=== PATIENT | female | born 1965 | race Caucasian/White ===

== ENCOUNTER 2020-10-15 12:33 | Emergency (ER) | payer BC, SELFPAY ==
[2020-10-15 12:41] VITALS: BP 151/85; PULSE 82; RESP 15; TEMP 36.5; O2SAT 100; BMI 34.2
[2020-10-15 12:57] VITALS: BP 173/87; PULSE 96; RESP 18; O2SAT 100
--- NOTE | 2020-10-15 13:07 | W.ED.EXTPRO ---
HPI - Extremity Problem General: Chief complaint: Extremity Injury, Upper Stated complaint: injury to right arm Time Seen by Provider: 10/15/20 12:46 Source: patient Mode of arrival: ambulatory Limitations: no limitations History of Present Illness: HPI Narrative: Patient is a nice 55-year-old female who presents to ED today for evaluation of her right upper extremity injury. 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 She sustained several puncture wounds to the posterior aspect of her right upper arm. She initially went to urgent care for evaluation but was promptly sent to the emergency department. Bleeding is controlled upon arrival. She has no other injuries at this time. Tetanus is up-to-date. MD Complaint: extremity pain and extremity swelling Onset (ago): hour(s) Pain Consistency: constant Location: right and upper extremity Radiation: none Relieving factors: immobilization Exacerbating factors: range of motion Associated symptoms: Reports no associated symptoms; Deny chest pain Review of Systems Eyes: Denies: change in vision Card: Denies: chest pain Resp: Denies: dyspnea GI: Denies: nausea or vomiting Musc: Reports: extremity pain, extremity swelling and joint swelling (around R elbow); Denies: neck pain, back pain or joint redness Skin/Breast: Reports: other (puncture wounds to R UE) Neuro: Denies: headache(s), numbness in extremities, weakness in extremities or sensory changes Physical Exam Const: COMMON NORMALS: patient oriented x3, healthy appearing, alert and well nourished GENERAL APPEARANCE: cooperative and in distress (in pain-refuses pain meds) Resp: COMMON NORMALS: normal respiratory effort Cardio: COMMON NORMALS: regular rate and regular rhythm RATE: regular rate RHYTHM: regular rhythm Extremity: NARRATIVE EXTREMITY EXAM: pt has two puncture ochoa to posterior R upper arm (largest one measuring 3cm with subcutaneous adipose tissue hanging out); she has a substantial amount of soft tissue swelling/hematoma present; bleeding from the lacerations is controlled; sensory of extremity appears intact; radial pulse 2+ Neuro: COMMON NORMALS: patient oriented x3, moves all extremities, no focal motor deficits and no sensory deficits noted SENSORIUM/ORIENTATION: Yes alert Skin: NARRATIVE SKIN EXAM: see extremity assessment-otherwise normal exam Procedures Laceration Laceration 1: Site: upper extremity Side (If applicable): right Size (cm): 1.0 Description: linear Depth: simple, single layer Local Anesthetic: lidocaine 1% and with epi Amount of anesthesia used (mL): 1.0 Pre-repair: wound explored and irrigated extensively Skin layer closed with: nylon Size (cm): 4-0 Number of sutures: 2 Technique: running Laceration 2: Site: upper extremity Side (If applicable): right Size (cm): 3.0 Description: linear Depth: simple, single layer Local Anesthetic: lidocaine 1% and with epi Amount of anesthesia used (mL): 3.0 Pre-repair: wound explored (subq fat exposed and was irrigated and placed back inside defect ) and irrigated extensively Skin layer closed with: nylon Size (cm): 4-0 Number of sutures: 5 Technique: running Course Vital Signs: Vital signs: Vital Signs Temperature 97.7 F 10/15/20 12:41 Pulse Rate 96 10/15/20 12:57 Respiratory Rate 18 10/15/20 12:57 Blood Pressure 173/87 10/15/20 12:57 Pulse Oximetry 100 10/15/20 12:57 MDM - Extremity (Nontraumatic) MDM Narrative: Medical decision making narrative: XR does not show any bony injury. CTA of her upper extremity shows no extravasation of the vessels. Radial pulse is equal bilaterally. Cap refill is brisk. Sensory intact. Wounds were repaired as documented. Will cover with antibiotics. Strict return to ED precautions given. Lab Data: Labs: Lab Results 10/15/20 10/15/20 Range/Units 14:00 14:00 WBC 17.4 H (4.0-10.0) 10^3/ uL RBC 4.66 (4.1-5.3) 10^6/u L Hgb 13.9 (11.5-15.3) g/dL Hct 42.9 (37.0-47.0) % MCV 92.1 (81-99) fL MCH 29.8 (28.0-34.0) pg MCHC 32.4 (30.0-36.0) g/dL RDW 13.2 (12.1-15.1) % Plt Count 260 (130-400) 10^3/c mm MPV 10.7 H (7.4-10.4) fL Neut % (Auto) 87.2 % Lymph % (Auto) 5.3 % Dundy % (Auto) 6.6 % Eos % (Auto) 0.1 % Baso % (Auto) 0.5 % Neut # (Auto) 15.22 H (1.8-7.7) 10^3/u L Lymph # (Auto) 0.9 (0.8-4.8) 10^3/u L Dundy # (Auto) 1.2 H (0.2-0.9) 10^3/u L Eos # (Auto) 0.0 (0.0-0.8) 10^3/u L Baso # (Auto) 0.1 (0.0-0.1) 10^3/u L Nucleated RBC % (a uto) 0 % Nucleated RBCs # 0.0 /100WBC Sodium 141 (136-145) mmol/L Potassium 3.6 (3.5-5.1) mmol/L Chloride 106 (98-107) mmol/L Carbon Dioxide 22 (22-29) mmol/L Anion Gap 16.6 (5-19) BUN 14 (6-20) mg/dL Creatinine 0.6 (0.5-0.9) mg/dL GFR Calculation 103.4 (90-130) mL/min Glucose 125 H (65-115) mg/dL Calculated Osmolal ity 294 (285-295) mOsm/k g Calcium 9.3 (8.5-10.5) mg/dL Total Bilirubin 0.3 (0.15-1.2) mg/dL AST 16 (0-32) U/L ALT 14 (0-33) U/L Alkaline Phosphata se 88 (35-105) IU/L Total Protein 7.4 (6.6-8.7) g/dL Albumin 4.4 (3.5-5.2) g/dL Globulin 3.0 (1.3-4.6) g/dL Imaging Data^: XR R humerus: Radiologist's impression: [facility] [address] [place] [address] XRay Report Signed Patient: Rosa Joyner Unit #: [id number] : 1965 Age/Sex: 55 / F ADM Date: 10/15/20 Loc: ER Room/Bed: Attending Dr: Ordering Provider/Ordering MD: Chata Wu Date of Service: 10/15/20 Procedure(s): [place] [address] Accession Number(s): [id number] Report Number: [id number] PROCEDURE INFORMATION: Exam: XR Right Humerus Exam date and time: 10/15/2020 1:10 PM Age: 55 years old Clinical indication: Injury or trauma; Other: Arm pinned between cow and cattle chute; Blunt trauma (contusions or hematomas); Arm, upper and elbow; Right; Injury date: 10/15/20 TECHNIQUE: Imaging protocol: XR Right humerus. Views: 2 or more views. COMPARISON: No relevant prior studies available. FINDINGS: Bones/joints: Negative for acute bone abnormality. Soft tissues: There is a soft tissue laceration in the medial aspect of the proximal arm measuring 16 mm x 109 mm. Soft tissue effusion is seen around this area. XR/[place] [id number] IMPRESSION: 1. No acute bone abnormality. 2. Soft tissue laceration and edema medial arm. Dictated By: Antwan Lau Signed By: Antwan Lau Signed Date/Time: 10/15/20 1357 DD/ 1354 XR R elbow: Radiologist's impression: [address] [address] XRay Report Signed Patient: Rosa Joyner Unit #: [id number] : 1965 Age/Sex: 55 / F ADM Date: 10/15/20 Loc: ER Room/Bed: Attending Dr: Ordering Provider/Ordering MD: Chata Wu Date of Service: 10/15/20 Procedure(s): XR elbow RT min 3V* 15041 Accession Number(s): [id number] Report Number: [id number] PROCEDURE INFORMATION: Exam: XR Right Elbow Exam date and time: 10/15/2020 1:10 PM Age: 55 years old Clinical indication: Injury or trauma; Other: Arm pinned between cow and cattle chute; Blunt trauma (contusions or hematomas); Arm, upper and elbow; Right; Injury date: 10/15/20 TECHNIQUE: Imaging protocol: XR Right elbow. Views: 3 or more views. COMPARISON: No relevant prior studies available. FINDINGS: Bones/joints: Negative for acute bony abnormality. Soft tissues: There is possible soft tissue injury in the region of the olecranon . This finding is seen on the lateral view only. XR/XR elbow RT min 3V* [id number] IMPRESSION: 1. Negative for acute bony abnormality. 2. Possible soft tissue injury near the olecranon Dictated By: Antwan Lau Signed By: Antwan Lau Signed Date/Time: 10/15/20 1355 DD/ 1352 CTA R UE: Radiologist's impression: [address] [address] [address] Scan Report Signed Patient: Rosa Joyner Unit #: [id number] : 1965 Age/Sex: 55 / F ADM Date: 10/15/20 Loc: ER Room/Bed: Attending Dr: Ordering Provider/Ordering MD: Chata Wu Date of Service: 10/15/20 Procedure(s): [place] [address] Accession Number(s): [id number] Report Number: [id number] WS: [id number] CT angiogram RIGHT upper extremity. HISTORY: Smash injury between 2 gauge. Soft tissue bleeding and hematoma. CT angiogram is performed with Omnipaque 350, 190 cc. Adequate contrast enhancement of the RIGHT upper extremity vessels. No active extravasation is noted from the arteries or veins of the humerus. Very small caliber arteries are probably due to vasoconstriction. There is significant soft tissue injury around the distal humerus and elbow. The soft tissue injury in the area closely associated with the veins and arteries at the elbow. There is no large hematoma. There is stranding of soft tissues from the edema and soft tissue injury. No fracture identified. CT/[place] [address] IMPRESSION: 1. No active extravasation from the arteries or veins of the RIGHT upper extremity. 2. There is extensive soft tissue injury which extends to abut the basilic and brachial arteries and veins in the distal humerus and at the elbow. 3. Vasoconstriction of the basilic and brachial arteries and humerus. Dictated By: Thais Nelson DO Signed By: Thais Nelson DO Signed Date/Time: 10/15/20 1458 DD/ 1448 Discharge Plan Discharge Patient Disposition: Home Clinical Impression: Puncture wound of right upper arm Qualifiers: Encounter type: initial encounter Qualified Code(s): S41.131A - Puncture wound without foreign body of right upper arm, initial encounter Condition: Stable Prescriptions: New cephalexin 500 mg capsule 500 mg PO Q6H 7 Days Qty: 28 RF: 0 Discharge Orders: Discharge ED (Routine); Ordered 10/15/20 Ordered By: Chata Wu Referrals: Leonard Schuster MD [Primary Care Provider] - Patient Instructions: Puncture Wound (ED), RICE Therapy (ED) Activity Restrictions/Additional Instructions: As we discussed you need to ice and elevate the extremity as much as possible to help with swelling. You need to return to the emergency department for any numbness/tingling/loss of sensation to the extremity, pallor/paleness, or coolness to the extremity. Sutures need to be removed in 10 days. Keep these clean with warm soap and water. Fill your antibiotics immediately. Monitor for signs of infection such as redness, swelling, increased pain or drainage. 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
--- NOTE | 2020-10-15 13:28 | CT_ITS ---
WS: [id number] CT angiogram RIGHT upper extremity. HISTORY: Smash injury between 2 gauge. Soft tissue bleeding and hematoma. CT angiogram is performed with Omnipaque 350, 190 cc. Adequate contrast enhancement of the RIGHT upper extremity vessels. No active extravasation is noted from the arteries or veins of the humerus. Very small caliber arteri es are probably due to vasoconstriction. There is significant soft tissue injury around the distal hu merus and elbow. The soft tissue injury in the area closely associated with the veins and arteries at the elbow. There is no large hematoma. There is stranding of soft tissues from the edema and soft ti ssue injury. No fracture identified. [place] [id number] IMPRESSION: 1. No active extravasation from the arteries or veins of the RIGHT upper extre mity. 2. There is extensive soft tissue injury which extends to abut the basilic and brachial arteries and veins in the distal humerus and at the elbow. 3. Vasoconstriction of the basilic and brachial arteries and humerus.
[2020-10-15 14:06] LABS: Basophils # 0.1 10^3/uL (0.0-0.1); Basophils % 0.5 %; Eosinophils % 0.1 %; Hematocrit 42.9 % (37.0-47.0); Hemoglobin 13.9 g/dL (11.5-15.3); Lymphocytes # 0.9 10^3/uL (0.8-4.8); Lymphocytes % 5.3 %; Mean Corpuscular HGB Conc 32.4 g/dL (30.0-36.0); Mean Corpuscular Hemoglobin 29.8 pg (28.0-34.0); Mean Corpuscular Volume 92.1 fL (81-99); Mean Platelet Volume 10.7 fL (7.4-10.4); Monocytes # 1.2 10^3/uL (0.2-0.9); Monocytes % 6.6 %; Neutrophils # 15.22 10^3/uL (1.8-7.7); Neutrophils % 87.2 %; Nucleated Red Blood Cells % 0 %; Platelet Count 260 10^3/cmm (130-400); Red Blood Count 4.66 10^6/uL (4.1-5.3); Red Cell Distribution Width 13.2 % (12.1-15.1); White Blood Count 17.4 10^3/uL (4.0-10.0)
[2020-10-15] MEDS: iohexol 350 mg/mL 100 mL Btl IV (14:20)
[2020-10-15] MEDS: iodixanol 320 mg/mL 100mL Btl IV (14:24)
[2020-10-15 14:29] LABS: Alanine Aminotransferase 14 U/L (0-33); Albumin Level 4.4 g/dL (3.5-5.2); Alkaline Phosphatase 88 IU/L (35-105); Anion Gap 16.6 (5-19); Aspartate Amino Transferase 16 U/L (0-32); Blood Urea Nitrogen 14 mg/dL (6-20); Calcium 9.3 mg/dL (8.5-10.5); Carbon Dioxide 22 mmol/L (22-29); Chloride 106 mmol/L (98-107); Creatinine Clr Calc Pharmacy 130.8392; Glomerular Filtration Rate 103.4 mL/min (90-130); Glucose 125 mg/dL (65-115); Osmolality Calculated 294 mOsm/kg (285-295); Potassium 3.6 mmol/L (3.5-5.1); Sodium 141 mmol/L (136-145); Total Bilirubin 0.3 mg/dL (0.15-1.2); Total Protein 7.4 g/dL (6.6-8.7)
== END 2020-10-15 16:08 | disposition home or self-care (01) ==
PROVIDERS: Emergency Provider Physician Assistant; PCP Family Medicine
DX: S41.141A Puncture wound with foreign body of right upper arm, initial encounter (principal); W23.0XXA Caught, crushed, jammed, or pinched between moving objects, initial encounter
CPT/HCPCS: 12002; 73060; 73080; 73206; 80053; 85025; 99283; Q9967

== ENCOUNTER → 2021-01-14 15:04 | Outpatient (BNVA) | payer BC, SELFPAY | PROVIDERS: PCP Family Medicine; Referring Provider Dermatology; Visit Provider Podiatrist Foot & Ankle Surgery | DX: M79.671 Pain in right foot (principal); M79.672 Pain in left foot | CPT/HCPCS: 73630 ==

== ENCOUNTER 2021-03-13 14:35 | Outpatient (CLI) | payer BC, SELFPAY | END 2021-03-13 14:36 | disposition home or self-care (01) | LOC: SPT 14:36 | PROVIDERS: PCP Family Medicine; Visit Provider Podiatrist Foot & Ankle Surgery | DX: Z46.89 Encounter for fitting and adjustment of other specified devices (principal); M72.2 Plantar fascial fibromatosis; G57.62 Lesion of plantar nerve, left lower limb | CPT/HCPCS: 97760; L4397 ==